=== PATIENT | male | born 1955 | race Caucasian/White ===

== ENCOUNTER 2020-01-07 17:34 | Outpatient (CLI) | payer MEDICARE, MEDICAID ==
[~2020-01-07] VITALS: Ht 175.3 cm; Wt 88.2 kg
[2020-01-07 18:09] VITALS: BP 113/64; Ht 175.3 cm; Wt 88.2 kg
--- NOTE | 2020-01-07 18:10 | NUR ---
175 ARRIVED TO ROOM WITH SISTER. PT PALE. VS STABLE. ORDERS NOTED. 1809 20G IV STARTED TO LEFT FORARM. LAB HERE TO DRAW BLOOD. FOR T&M 2 UNITS. AGATHA THE LIN[employer] CLERK HAS BEEN NOTIFIED THE NEED FOR A ROOM.
--- NOTE | 2020-01-07 20:54 | NUR ---
2044 POST OP INSTRUCTIONS GIVEN. PT VOIDED 2 X AND TOLERATING A DIET SOFT DRINK
--- NOTE | 2020-01-07 20:54 | NUR ---
2054 REPORT GIVEN TO CORNELIO ON MED SURG
--- NOTE | 2020-01-07 21:20 | NUR ---
PT WAS RECEIVED FROM OUT PATIENT WITH HIS FIRST UNIT OF BLOOD INFUSING. HIS SISTER WAS WITH HIM WHILE HE WAS RECEIVING THE BLOOD. HIS IV SITE WAS CLEAN AND DRY WITH NO REDNESS OR SWELLING. HE WAS ALERT AND ORIENTED, ABLE TO VERBALIZE NEEDS. VITAL SIGNS WERE GOOD AND NO COMPLAINTS CELINA NOTED AT ARRIVAL
--- NOTE | 2020-01-07 22:30 | NUR ---
AT THIS TIME THE FIRST UNIT OF BLOOD WAS FINISHED AND THE SECOND WAS STARTED. THERE WERE NO SIGNS OF ANY REACTION. SITE STILL LOOKS GOOD AND PT IS RESTING WITH HIS EYES CLOSED.
--- NOTE | 2020-01-08 01:15 | NUR ---
PT FINISHED HIS BLOOD AT 0100 AND WE REMOVED THE IV /APPLIED A SMALL PRESSURE DRESSING. MAKING SURE ALL PAPERWORK FOR DISHARGE WAS GIVEN TO PATIENT AND THEY WERE BOTH AWARE OF SIGNS AND SYMPTOMS OF REACTION, PT WAS THEN TAKEN TO THE ER EXIT VIA W/C AND PLACED IN HIS SISTERS CAR.
== END 2020-01-08 01:15 | disposition home or self-care (01) ==
LOC: D.OPS 17:34 → D.MS 20:55 → D.OPS 01-08 01:15
PROVIDERS: ATTEND Family Medicine
DX: D64.9 Anemia, unspecified (principal)